=== PATIENT | male | born 1950 | race Caucasian/White ===

== ENCOUNTER 2022-12-23 12:42 | Outpatient (CLI) | payer MEDICARE, OTHER ==
[~2022-12-23 12:42] MED LIST: Iopamidol 300 61% 100 ML VIAL FS ONE
== END 2022-12-23 12:43 | disposition home or self-care (01) ==
LOC: CSHCT 12:42
PROVIDERS: ATTEND Student in an Organized Health Care Education/Training Program
DX: J35.8 Other chronic diseases of tonsils and adenoids (principal); R59.1 Generalized enlarged lymph nodes
CPT/HCPCS: 70491; 71260; 82565

== ENCOUNTER 2023-12-18 12:04 | Outpatient (CLI) | payer MEDICARE, OTHER | END 2023-12-18 12:05 | disposition home or self-care (01) | LOC: CSHCT 12:04 | PROVIDERS: ATTEND Radiology Radiation Oncology | DX: C09.1 Malignant neoplasm of tonsillar pillar (anterior) (posterior) (principal); Z79.899 Other long term (current) drug therapy; C09.0 Malignant neoplasm of tonsillar fossa | CPT/HCPCS: 70491; 71260; 80053; 82248; 83615; 83735; 84100; 84443; 84550; 85025 ==

== ENCOUNTER 2024-06-14 09:15 | Outpatient (CLI) | payer MEDICARE, OTHER ==
[2024-06-14] MEDS ORDERED: Iopamidol 300 61% 100 ML VIAL FS ONE ×2 (12:52)
== END 2024-06-14 09:16 | disposition home or self-care (01) ==
LOC: CSHCT 09:15
PROVIDERS: ATTEND Radiology Radiation Oncology
DX: C09.1 Malignant neoplasm of tonsillar pillar (anterior) (posterior) (principal); K80.20 Calculus of gallbladder without cholecystitis without obstruction
CPT/HCPCS: 70491; 71260; 82565; Q9967

== ENCOUNTER 2024-12-09 09:28 | Outpatient (CLI) | payer MEDICARE, OTHER ==
[2024-12-09] MEDS ORDERED: Iopamidol 300 61% 100 ML VIAL FS ONE (10:25)
[2024-12-09 10:57] LABS: Estimated GFR - POC 41.0
== END 2024-12-09 09:29 | disposition home or self-care (01) ==
LOC: CSHCT 09:28
PROVIDERS: ATTEND Radiology Radiation Oncology
DX: C09.1 Malignant neoplasm of tonsillar pillar (anterior) (posterior) (principal); I51.7 Cardiomegaly; J98.4 Other disorders of lung; K80.20 Calculus of gallbladder without cholecystitis without obstruction; Z00.00 Encounter for general adult medical examination without abnormal findings; I10 Essential (primary) hypertension; E11.40 Type 2 diabetes mellitus with diabetic neuropathy, unspecified; C09.9 Malignant neoplasm of tonsil, unspecified; E78.2 Mixed hyperlipidemia
CPT/HCPCS: 36415; 70491; 71260; 80053; 80061; 82565; 83036; 85025; Q9967